=== PATIENT | female | born 1985 | race Caucasian/White ===

== ENCOUNTER 2016-06-02 20:38 | Emergency (ER) ==
[2016-06-02 20:47] VITALS: BP 125/79; TEMP 99; BMI 41.4
[2016-06-02] MEDS ORDERED: MOTRIN SUSP PO STA (20:59)
--- NOTE | 2016-06-02 21:02 | ED.PDOC ---
General ED Provider: Dr. EVENS BOLAÑOS-ER Chief Complaint: Ankle Pain/Injury Stated Complaint: i twisted my ankle Time Seen by Physician: 20:40 Mode of Arrival: Walk-In Information Source: Patient Exam Limitations: No limitations Primary Care Provider: EVAN ONOFRE Nursing and Triage Documentation Reviewed and Agree: Yes Musculoskeletal Complaint Exam - Ankle/Foot Complaint/Exam Location of Injury: Reports: Left, Ankle Mechanism of Injury: Reports: Trauma Onset/Duration: several hours Symptoms Are: Reports: Still present Onset of Pain: Reports: Immediate Initial Severity: Mild Current Severity: Moderate Location: Reports: Discrete Character: Reports: Dull, Aching Alleviating: Reports: None Aggravating: Reports: Movement, Weight bearing Able to Bear Weight: Yes Associated Signs and Symptoms: Reports: Swelling, Bruising Gout Risk Factors: Reports: None Related Surgical History: Reports: None Lower Extremity Findings: Present: Swelling, Ecchymosis, Tenderness, Limited range of motion Achilles Tendon Abnormality: No Tenderness: Present: Lateral malleolus Limited Range of Motion: Present: Inversion, Eversion Differential Diagnosis: Sprain, Strain Review of Systems - Review Of Systems Constitutional: Reports: No symptoms Eyes: Reports: No symptoms Ears, Nose, Mouth, Throat: Reports: No symptoms Respiratory: Reports: No symptoms Cardiac: Reports: No symptoms GI: Reports: No symptoms : Reports: No symptoms Musculoskeletal: Reports: Joint pain, Joint swelling Skin: Reports: No symptoms Neurological: Reports: No symptoms Endocrine: Reports: No symptoms Hematologic/Lymphatic: Reports: No symptoms All Other Systems: Reviewed and Negative Past Medical History - Past Medical History Endocrine: Reports: Unknown Cardiovascular: Reports: Unknown Respiratory: Reports: Unknown Hematological: Reports: Unknown Gastrointestinal: Reports: Unknown Genitourinary: Reports: Unknown Neuro/Psych: Reports: Unknown Musculoskeletal: Reports: Unknown Cancer: Reports: Unknown Last Menstrual Period: PRESENTLY - Surgical History General Surgical History: Reports: Other - Family History Family History: Reports: Unknown - Social History Smoking Status: Never smoker Hx Substance Use: No Alcohol Screening: None Lives: With family - Immunizations Tetanus Shot up to Date: (UNKNOWN) Physical Exam - Physical Exam Appearance: Well-appearing, No pain distress, Well-nourished Pain Distress: Mild Eyes: CASSANDRA, EOMI, Conjunctiva clear ENT: Ears normal, Nose normal, Oropharynx normal Neck: Supple Respiratory: Airway patent, Breath sounds clear, Breath sounds equal, Respirations nonlabored Cardiovascular: RRR, Pulses normal, No rub, No murmur GI/: Soft Musculoskeletal: Normal strength, No edema, No calf tenderness, Limited ROM Skin: Warm Neurological: Sensation intact, Motor intact, Reflexes intact, Cranial nerves intact, Alert, Oriented Psychiatric: Affect appropriate, Mood appropriate Interpretation - Radiology Interpretation Radiology Interpretation By: ED Physician Radiology Results: Negative Critical Care Note - Critical Care Note Total Time (mins): 0 Course - Course Orders, Labs, Meds: Orders Category Date Time Status CRUTCHES [ED CRUTCHES] .ONCE EMERGENCY 06/02/16 20:58 Active ED MANUELA WRAP .ONCE EMERGENCY 06/02/16 20:58 Active ED SPLINT APPLICATION .ONCE EMERGENCY 06/02/16 20:58 Active Ibuprofen Susp [Motrin Susp] MEDS 06/02/16 20:59 Stat 600 mg PO ONCE STA ANKLE, LEFT MIN 3 VIEWS Stat RADS 06/02/16 20:41 Taken Medications Generic Name Dose Route Start Last Admin Trade Name Freq PRN Reason Stop Dose Admin Ibuprofen 600 mg 06/02/16 20:59 Motrin Susp PO 06/02/16 21:00 ONCE STA Vital Signs: Temp Pulse Resp BP Pulse Ox 06/02/16 20:39 99 F 79 18 125/79 96 Departure - Departure Time of Disposition: 21:02 Disposition: HOME SELF-CARE Discharge Problem: Ankle pain Instructions: Ankle Sprain (ED) Condition: Good Pt referred to PMD for follow-up: Yes Additional Instructions: stay in [place] and splint and crutches---use motrin for pain--f/u with pcp Allergies/Adverse Reactions: Allergies No Known Allergies Allergy (Verified 06/02/16 20:43) Home Medications: Ambulatory Orders 1 [No Reported Medications] 06/02/16 Disposition Discussed With: Patient
--- NOTE | 2016-06-03 03:36 | DI ---
EXAM: Left ankle, three views, 06/02/2016 HISTORY: Injury COMPARISON: None FINDINGS / IMPRESSION: Soft tissue swelling circumferentially at the level of the ankle. Underlyin g osseous structures appear intact without evidence of fracture or dislocation. Small calcaneal spu r. No acute osseous abnormality.
== END 2016-06-02 21:27 | disposition home or self-care (01) ==
LOC: ED 20:38
DX: S93.402A Sprain of unspecified ligament of left ankle, initial encounter (principal); X50.1XXA Overexertion from prolonged static or awkward postures, initial encounter
CPT/HCPCS: 99283

== ENCOUNTER 2016-11-30 18:02 | Emergency (ER) ==
[2016-11-30 18:11] VITALS: BP 130/86; TEMP 99.3; BMI 40.7
[2016-11-30] MEDS ORDERED: GI COCKTAIL PO STA (18:27)
--- NOTE | 2016-11-30 18:29 | ED.PDOC ---
General Stated Complaint: Patient woke up with epigastric pain and vomited once, after that hurting all over the bellu had 1 episode of diarrhea, and had some blood in it. Time Seen by Physician: 18:27 Mode of Arrival: Walk-In Information Source: Patient Nursing and Triage Documentation Reviewed and Agree: Yes <BREA SMITH - Last Filed: 11/30/16 19:09> <EVENS LOPEZ - Last Filed: 11/30/16 19:48> ED Provider: Dr. EVENS BOLAÑOS-ARY Chief Complaint: Abdominal Pain Primary Care Provider: EVAN ONOFRE GI Complaint Exam - Abdominal Pain Complaint/Exam Onset: Sudden Symptoms Are: Still present Timing: Intermittent Initial Severity: Moderate Current Severity: Mild Location of Pain: RLQ, LLQ, Epigastric Radiates To: Reports: Back Character: Reports: Dull, Aching Aggravating: Reports: Movement Alleviating: Reports: None Associated Signs and Symptoms: Reports: Blood in stool, Nausea, Vomiting, Diarrhea. Denies: Diaphoresis, Fever, Cough, Chest pain, Dizziness, Back pain, Constipation, Dysuria, Urinary frequency, Decreased urine output, Decreased appetite, Vaginal bleeding, Vaginal discharge, Sore throat, Decreased activity AAA Risk Factors: Reports: None Cardiac Risk Factors: Reports: None Ectopic Risk Factors: Reports: None Ovarian Torsion Risk Factors: Reports: None Surgical Obstruction Risk Factors: Reports: None Related Surgical History: Reports: None Patient Rh Status: Unknown Abdominal Findings: Present: None Differential Diagnoses: Gastroenteritis, PUD <BREA SMITH Filed: 11/30/16 19:09> Review of Systems - Review Of Systems Constitutional: Reports: No symptoms Eyes: Reports: No symptoms Ears, Nose, Mouth, Throat: Reports: No symptoms Respiratory: Reports: No symptoms Cardiac: Reports: No symptoms GI: Reports: Abdominal pain, Blood streaked bowels, Nausea : Reports: No symptoms Musculoskeletal: Reports: No symptoms Skin: Reports: No symptoms Neurological: Reports: No symptoms Endocrine: Reports: No symptoms Hematologic/Lymphatic: Reports: No symptoms All Other Systems: Reviewed and Negative <BREA SMITH Last Filed: 11/30/16 19:09> Past Medical History - Past Medical History Previously Healthy: Yes Endocrine: Reports: Unknown Cardiovascular: Reports: Unknown Respiratory: Reports: Unknown Hematological: Reports: Unknown Gastrointestinal: Reports: Unknown Genitourinary: Reports: Unknown Neuro/Psych: Reports: Unknown Musculoskeletal: Reports: Unknown Cancer: Reports: Unknown Last Menstrual Period: 10/04/16 - Surgical History General Surgical History: Reports: Other - Family History Family History: Reports: Unknown - Social History Smoking Status: Never smoker Hx Substance Use: No Alcohol Screening: None <BREA SMITH - Last Filed: 11/30/16 19:09> Physical Exam - Physical Exam Appearance: Ill-appearing, Obese Pain Distress: Mild Eyes: CASSANDRA, EOMI, Conjunctiva clear ENT: Ears normal, Nose normal, Oropharynx normal Respiratory: Airway patent, Breath sounds clear, Breath sounds equal, Respirations nonlabored Cardiovascular: RRR, Pulses normal, No rub, No murmur GI/: Tender Musculoskeletal: Normal strength, ROM intact, No edema, No calf tenderness Skin: Warm, Dry, Normal color Neurological: Sensation intact, Motor intact, Reflexes intact, Cranial nerves intact, Alert, Oriented Psychiatric: Affect appropriate, Mood appropriate <BREA SMITH - Last Filed: 11/30/16 19:09> Physician Notification - Case Discussed Physician Notified: dr nazia prince=--graciously accepted in transfer to [facility] Time of Notification: 19:46 <EVENS LOPEZ - Last Filed: 11/30/16 19:48> Critical Care Note - Critical Care Note Total Time (mins): 15 <BREA SMITH - Last Filed: 11/30/16 19:09> Course - Course Hematology/Chemistry: 11/30/16 18:31 11/30/16 18:31 <BREA SMITH - Last Filed: 11/30/16 19:09> - Course Hematology/Chemistry: 11/30/16 18:31 11/30/16 18:31 <EVENS LOPEZ - Last Filed: 11/30/16 19:48> - Course Orders, Labs, Meds: Lab Review 11/30/16 18:31 WBC 14.56 H RBC 4.36 Hgb 12.6 Hct 36.0 L MCV 82.6 MCH 28.9 MCHC 35.0 RDW Coeff of Ines 12.0 Plt Count 212 Immature Gran % (Auto) 0.3 Neut % (Auto) 81.6 Lymph % (Auto) 12.8 Slope % (Auto) 5.1 Eos % (Auto) 0.0 Baso % (Auto) 0.2 Immature Gran # (Auto) 0.0 Neut # 11.9 H Lymph # 1.9 Slope # 0.7 Eos # 0.0 Baso # 0.0 Sodium 137 Potassium 3.7 Chloride 103 Carbon Dioxide 21 Anion Gap 16.7 BUN 7 Creatinine 0.75 Estimated GFR (MDRD) 91.00 BUN/Creatinine Ratio 9.33 Glucose 119 H Calcium 9.2 Total Bilirubin 0.63 AST 15 ALT 16 Alkaline Phosphatase 64 Total Protein 7.3 Albumin 3.8 Globulin 3.5 Albumin/Globulin Ratio 1.09 Urine Color Yellow Urine Clarity Clear Urine pH 5.5 Ur Specific [place] 1.015 Urine Protein Negative Urine Glucose (UA) Negative Urine Ketones 1+ Urine Blood Trace-lysed Urine Nitrite Negative Urine Bilirubin Negative Urine Urobilinogen 0.2 Ur Leukocyte Esterase Negative Urine Microscopic RBC 0-2 Urine Microscopic WBC 0-2 Ur Squamous Epith Cells 0-2 Urine Test Negative Orders Category Date Time Status TRANSFER TO OUTSIDE FACILITY .TO [facility] 11/30/16 19:47 Active ([place], [place]) WRITE TRANSFER/SBAR NOTE ONCE CARE 11/30/16 19:47 Active DISCHARGE ASSESSMENT ONCE DISCHARGE 11/30/16 19:47 Active WRITE DISCHARGE NOTE ONCE DISCHARGE 11/30/16 19:47 Active ED IV/MEDIPORT/POWERPORT .ONCE EMERGENCY 11/30/16 19:24 Active CBC W/ AUTO DIFF Stat LAB 11/30/16 18:31 Completed COMPREHENSIVE METABOLIC PANEL Stat LAB 11/30/16 18:31 Completed URINALYSIS C & S IF INDICATED Stat LAB 11/30/16 18:31 Completed URINE Stat LAB 11/30/16 18:31 Completed 0.9 % Sodium Chloride [Saline Flush] MEDS 11/30/16 19:24 Ordered 1 syr IVF PRN PRN Mag-Al Plus//Lidocaine [Gi Cocktail] MEDS 11/30/16 18:27 Discontinued 30 ml PO ONCE STA Sodium Chloride 0.9% [Sodium Chloride] 1,000 ml MEDS 11/30/16 19:24 Active IV 100 mls/hr CT ABDOMEN/PELVIS WO CONTRAST Stat RADS 11/30/16 18:23 Completed Medications Generic Name Dose Route Start Last Admin Trade Name Freq PRN Reason Stop Dose Admin Sodium Chloride 1,000 mls @ 100 mls/hr 11/30/16 19:24 Sodium Chloride IV 12/01/16 05:23 .Q10H STA Sodium Chloride 1 syr 11/30/16 19:24 Saline Flush IVF PRN PRN To flush IV Discontinued Medications Generic Name Dose Route Start Last Admin Trade Name Frejeff PRN Reason Stop Dose Admin Al Hydroxide/Mg Hydroxide 30 ml 11/30/16 18:27 11/30/16 18:53 Gi Cocktail PO 11/30/16 18:28 30 ml ONCE STA Administration Vital Signs: Temp Pulse Resp BP Pulse Ox 11/30/16 18:03 99.3 F 99 H 20 130/86 98 Departure - Departure Pt referred to PMD for follow-up: Yes Disposition Discussed With: Patient <BREA SMITH - Last Filed: 11/30/16 19:09> - Departure Time of Disposition: 19:46 Pt referred to PMD for follow-up: No Transfer Form Completed: Yes Disposition Discussed With: Patient, Family <EVENS LOPEZ - Last Filed: 11/30/16 19:48> - Departure Disposition: HOME SELF-CARE Discharge Problem: Gastroenteritis, PUD (peptic ulcer disease) Acute appendicitis Qualifiers: Acute appendicitis type: unspecified acute appendicitis type Qualifier Code: ( K35.80) Unspecified acute appendicitis Instructions: Gastroenteritis (ED) Condition: Good Additional Instructions: Follow up with your primary care provider Take medicine as prescribe Avoid fatty or greasy foods Prescriptions: Metronidazole [Flagyl] 500 mg PO Q8HR #30 tablet Ranitidine HCl [Zantac] 150 mg PO BIDAC #20 tablet Allergies/Adverse Reactions: Allergies No Known Allergies Allergy (Verified 11/30/16 18:12) Home Medications: Ambulatory Orders Metronidazole [Flagyl] 500 mg PO Q8HR #30 tablet 11/30/16 Ranitidine HCl [Zantac] 150 mg PO BIDAC #20 tablet 11/30/16
[2016-11-30 18:36] LABS: BASOPHILS % (AUTO) 0.2 % (0.0-3.0); HEMOGLOBIN 12.6 g/dl (12.0-16.0); IMMATURE GRANULOCYTE % (AUTO) 0.3 % (0.0-5.0); LYMPHOCYTES # (AUTO) 1.9 K/uL (0.60-3.4); LYMPHOCYTES % (AUTO) 12.8 (10.0-50.0); MEAN CORPUSCULAR HEMOGLOBIN 28.9 pg (27.0-31.0); MEAN CORPUSCULAR VOLUME 82.6 fl (81.0-99.0); MONOCYTES # (AUTO) 0.7 K/uL (0.4-2.0); MONOCYTES % (AUTO) 5.1 (0-10); NEUTROPHILS # (AUTO) 11.9 K/ul (2.0-6.9); NEUTROPHILS % (AUTO) 81.6; PLATELET COUNT 212 10^3/uL (140-440); RED BLOOD COUNT 4.36 10^6/ul (4.20-5.40); WHITE BLOOD COUNT 14.56 K/ul (4.6-10.2)
[2016-11-30 18:39] LABS: BILIRUBIN,URINE Negative (NEGATIVE); KETONES,URINE 1+ (NEGATIVE); LEUKOCYTE ESTERASE ,URINE Negative (NEGATIVE); NITRITE,URINE Negative (NEGATIVE); PH,URINE 5.5 (5-9); PROTEIN,URINE Negative (NEGATIVE); URINE, BLOOD Trace-lysed (NEGATIVE)
[2016-11-30 18:42] LABS: ADD URINE MICROSCOPIC YES; URINE PREGNANCY INTERNAL QC INTERNAL QC VALID
[2016-11-30 18:56] LABS: ALBUMIN 3.8 g/dL (3.4-5.0); ALBUMIN/GLOBULIN RATIO 1.09; ANION GAP 16.7; BILIRUBIN,TOTAL 0.63 mg/dL (0.00-1.20); BUN/CREATININE RATIO 9.33; CALCIUM 9.2 mg/dL (8.2-10.2); CREATININE 0.75 mg/dL (0.60-1.30); POTASSIUM 3.7 mmol/L (3.5-5.10); TOTAL PROTEIN 7.3 g/dL (6.4-8.2)
--- NOTE | 2016-11-30 19:11 | CT ---
EXAM: CT ABDOMEN AND PELVIS HISTORY: Abdominal pain TECHNIQUE: CT abdomen and pelvis without intravenous contrast. Images were reconstructed using 3 m m section thickness. Reformations were prepared. COMPARISON: None FINDINGS: Elongated right hepatic lobe. Questionable mild fatty infiltration of the liver. Spleen within nor mal limits. Gallbladder, pancreas and adrenal glands are unremarkable. There is a punctate 0.2 cm calculus within the left kidney. No hydronephrosis or perinephric fat stranding. There is a punctat e 0.2 cm calculus near the left vesicoureteral junction although there is no convincing evidence izabel t this calculus is within the ureter. Correlate clinically. There is no ureteral dilatation. Norm al abdominal aorta. Stomach appears normal. No surgical history nor region of interest was provided. A tubular structur e which probably represents the appendix is dilated at 0.98 cm and has mild surrounding inflammatory infiltration of the abdominal fat. The lumen is fluid-filled without gas. No evidence of regional abscess or appendicolith is seen. General bowel gas pattern is normal. Uterus and urinary bladder appear normal. There is a small fatty umbilical hernia with a transverse neck of 1.2 cm likely of no current clinic al significance. Bones are within normal limits. Lung bases are clear. No pneumoperitoneum. IMPRESSION: 1. Findings suggestive of acute appendicitis. See second paragraph of report. 2. Elongated right hepatic lobe. Possible mild fatty infiltration of the liver. 3. Left nephrolithiasis. No evidence of ureteral obstruction.
[2016-11-30] MEDS ORDERED: SODIUM CHLORIDE 1,000 ML IV STA (19:24)
== END 2016-11-30 20:00 | disposition short-term general hospital (02) ==
LOC: ED 18:02
DX: K35.80 Unspecified acute appendicitis (principal); K27.9 Peptic ulcer, site unspecified, unspecified as acute or chronic, without hemorrhage or perforation; K52.9 Noninfective gastroenteritis and colitis, unspecified
CPT/HCPCS: 36415; 80053; 81001; 81025; 85025; 96360; 99285

== ENCOUNTER 2016-11-30 20:05 | Outpatient (CLI) ==
[2016-11-30 18:11] VITALS: BMI 40.7
== END 2016-11-30 20:06 | disposition home or self-care (01) ==
LOC: AMBL 20:05
PROVIDERS: ATTEND Family Medicine
DX: K35.80 Unspecified acute appendicitis (principal)

== ENCOUNTER 2018-12-18 11:40 | Outpatient (CLI) | payer OTHER | END 2018-12-18 11:41 | disposition home or self-care (01) | LOC: RHC-LAB 11:40 → FCC-LAB 11:41 | PROVIDERS: ATTEND Family Medicine | DX: J02.9 Acute pharyngitis, unspecified (principal) | CPT/HCPCS: 87651 ==